=== PATIENT | male | born 1995 | race African-American/Black ===

== ENCOUNTER 2017-11-05 07:54 | Emergency (ER) | payer OTHER ==
[~2017-11-05] VITALS: Ht 182.9 cm; Wt 117.9 kg
[2017-11-05] MEDS ORDERED: CONCERTA54 M1 PO (08:06)
[2017-11-05] MEDS ORDERED: KEFLEX500 M1 PO (08:23)
[2017-11-05 08:53] VITALS: BP 144/80
== END 2017-11-05 08:55 | disposition home or self-care (01) ==
LOC: ER 07:54
DX: S61.012A Laceration without foreign body of left thumb without damage to nail, initial encounter (principal); W25.XXXA Contact with sharp glass, initial encounter; Y93.89 Activity, other specified; Y92.89 Other specified places as the place of occurrence of the external cause; Y99.8 Other external cause status